=== PATIENT | female | born 1990 | race Caucasian/White ===

== ENCOUNTER 2025-08-27 09:49 | Emergency (ER) | payer OTHER, SELFPAY ==
--- NOTE | 2025-08-27 09:55 | EKG_ITS ---
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
--- NOTE | 2025-08-27 09:59 | DI.RAD.S_ITS ---
PROCEDURE: XR CHEST 1V INDICATIONS: syncope TECHNIQUE: One view of the chest was acquired. COMPARISON: None. FINDINGS: Surgical changes and devices: None. Lungs and pleura: Lungs are clear. No pleural effusions or pneumothorax. Mediastinum: Mediastinal contours appear normal. Heart size is normal. Bones and chest wall: No suspicious bony lesions. Overlying soft tissues appear unremarkable. IMPRESSION: No acute cardiopulmonary abnormality is seen. Dictated by: Tae Lowry M.D. on 08/27/2025 at 9:31 Approved by: Tae Lowry M.D. on 08/27/2025 at 9:31
--- NOTE | 2025-08-27 09:59 | DI.CT.S_ITS ---
PROCEDURE: CT HEAD/BRAIN WO CON INDICATIONS: syncope TECHNIQUE: Noncontrast 4.5 mm thick angled axial sections acquired from the foramen magnum to the vertex, with coronal and sagittal reformats. For radiation dose reduction, the following was used: automated exposure control, adjustment of mA and/or kV according to patient size. COMPARISON: [facility], CT, CT FACIAL BONES WO CON, 08/27/2025, 10:08. FINDINGS: Image quality: Diagnostic. CSF spaces: Basal cisterns are patent. No extra-axial fluid collections. Ventricles are normal in size and shape. Brain: No midline shift. No intracranial mass effect or hemorrhage. Knowles- white matter interface is normal. Skull and face: Calvarium and visualized facial bones are intact, without suspicious lesions. Sinuses: Visualized sinuses and mastoids are clear. IMPRESSION: No acute intracranial pathology. Dictated by: Tae Lowry M.D. on 08/27/2025 at 9:31 Approved by: Tae Lowry M.D. on 08/27/2025 at 9:34
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
[2025-08-27 10:01] VITALS: BP 128/90; PULSE 79; RESP 18; TEMP 36.5; O2SAT 100; BMI 19.3
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
--- NOTE | 2025-08-27 10:06 | PC.NURSE ---
Pt arrives with lac an swelling noted to bridge of nose and swollen lip. Pt denies any broken teeth.
[2025-08-27] MEDS: SODIUM CHLORIDE 0.9% 1,000 ML 1000 ML IV (10:07)
[2025-08-27 10:13] LABS: Add Manual Diff / Slide Review NO; Hematocrit 38.2 % (36-46); Hemoglobin 12.9 g/dL (12.0-16.0); Lymphocytes Absolute Auto 900 /uL (1100-4500); Mean Corpuscular HGB Conc 33.9 % (30-36); Mean Corpuscular Hemoglobin 28.3 PG (26-34); Mean Corpuscular Volume 83.7 fL (80-100); Platelet Count 350 X10^3/uL (150-400)
[2025-08-27 10:30] LABS: Alanine Aminotransferase 27 IU/L (<35); Albumin 5.0 g/dL (3.5-5.0); Albumin Globulin Ratio 1.6 (1.0-2.8); Alkaline Phosphatase 66 U/L (38-126); Blood Urea Nitrogen 9 mg/dL (7-17); Calcium 9.2 mg/dL (8.4-10.2); Carbon Dioxide 23 mmol/L (22-32); Chloride 102 mmol/L (98-107); Estimated Glomerular Filt Rate > 60 mL/min (>60); Ethanol (ETOH) < 10 mg/dL (<10); Globulin 3.2 g/dL (1.7-4.1); Glucose 142 mg/dL (70-99); HEMOLYSIS < 15 (0-50); Lipase 135 U/L (23-300); Magnesium 1.8 mg/dL (1.6-2.3); Potassium 3.8 mmol/L (3.4-5.1); Sodium 137 mmol/L (137-145); Total Protein 8.2 g/dL (6.3-8.2)
[2025-08-27] MEDS: TET,DIPH,PERTUSS(ACELL),VAC/PF 0.5 ML SYRINGE IM (10:31)
[2025-08-27 10:36] VITALS: BP 121/84; PULSE 81; O2SAT 100
[2025-08-27 10:41] LABS: NT-proBNP (BNP-Adult 18+) 33 pg/mL (<125); Troponin I < 0.012 ng/mL (0.01-0.034)
[2025-08-27 10:46] LABS: Pregnancy Test Serum,Qual Negative (Negative)
[2025-08-27 11:00] VITALS: BP 109/65; PULSE 86; O2SAT 100
[2025-08-27 11:30] VITALS: PULSE 82; O2SAT 100
[2025-08-27 11:31] VITALS: BP 107/74; PULSE 79; O2SAT 100
== END 2025-08-27 11:43 | disposition home or self-care (01) ==
PROVIDERS: Emergency Provider Emergency Medicine
DX: R55 Syncope and collapse (principal); S00.81XA Abrasion of other part of head, initial encounter; S09.90XA Unspecified injury of head, initial encounter; Z23 Encounter for immunization
CPT/HCPCS: 36415; 70450; 70486; 71045; 80053; 80320; 82962; 83690; 83735; 83880; 84484; 84703; 85025; 85379; 90471; 93005; 96360; 99284; 90715; J7030